=== PATIENT | male | born 1995 | race Caucasian/White ===

== ENCOUNTER 2019-05-18 09:35 | Emergency (ER) | payer OTHER, BC ==
[2019-05-18] MEDS ORDERED: LIDOCAINE 1% INJ-PF (10 MG/ML) 30 ML SDV INJ ONE (09:54)
[2019-05-18] MEDS ORDERED: DIPH/PERTUSS(ACELL)/TETANUS VAC/PF 0.5 ML SYR (>=10YO) IM ONE (09:54)
--- NOTE | 2019-05-18 09:59 | ER Document Report ---
HPI - HPI Time Seen by Provider: 05/18/19 09:49 Pain Level: 2 Notes: Patient is a 23-year-old male with no significant past medical history and unknown last tetanus who presents complaining of left palm laceration and other small areas of excoriations to his hand from oyster shells when he was in the salt water today. Patient states that he slipped and braced his fall with his palm which caused lacerations to the hand. He is able to move his fingers without difficulty. Patient states that the bleeding has been well controlled with gauze and has not noticed any pulsation of blood. Denies drug allergies. No other concerns or complaints. Denies any headache, fever, head injury, neck pain, URI, sore throat, chest pain, palpitations, syncope, cough, shortness of breath, wheeze, dyspnea, abdominal pain, nausea/vomiting/diarrhea, urinary retention, dysuria, hematuria, numbness/tingling, muscle paralysis/weakness, or rash. - ROS Systems Reviewed and Negative: Yes All other systems reviewed and negative Past Medical History - Social History Smoking Status: Current Some Day Smoker Frequency of alcohol use: None Drug Abuse: None Family History: Reviewed & Not Pertinent Patient has suicidal ideation: No Patient has homicidal ideation: No Vertical Provider Document - CONSTITUTIONAL Agree With Documented VS: Yes Notes: PHYSICAL EXAMINATION: GENERAL: Well-appearing, well-nourished and in no acute distress. HEAD: Atraumatic, normocephalic. NECK: Normal range of motion, supple without lymphadenopathy. No midline tenderness. LUNGS: Breath sounds clear to auscultation bilaterally and equal. No wheezes rales or rhonchi. HEART: Regular rate and rhythm without murmurs, rubs, gallops. Musculoskeletal: Lt hand/wrist: + multiple superficial excoriations noted to the hand/fingers. There is an irregular superficial 2cm laceration noted to the left palm. No erythema, warmth, ecchymosis, deformity, or swelling noted. N/V intact distal. FROM to passive/active at the wrist/fingers. Strength 5+/5. No scaphoid tenderness. No other bony tenderness. There were a few pieces of superficial oyster shells that I was able to remove during exam. Extremities: No cyanosis, clubbing, or edema b/l. Peripheral pulses 2+. Capillary refill less than 3 seconds. NEUROLOGICAL: Normal speech, normal gait. Normal sensory, motor exams otherwise unremarkable PSYCH: Normal mood, normal affect. SKIN: see above. No rash Course - Re-evaluation Re-evalutation: 05/18/19 Dr. Dominguez in agreement with dispo/plan: Patient is an afebrile, well-hydrated, 23-year-old male who presents to the ED with a laceration to his left palm. Vitals are acceptable. PE is otherwise unremarkable for any neurovascular compromise, obvious tendon/ligament rupture, obvious fracture/dislocation, septic joint. Patient is nontoxic-appearing and is tolerating p.o. without difficulties. XR unremarkable. Wound was thoroughly irrigated and cleansed. Multiple small foreign body pieces were removed that appeared to be oyster shell fragments. Reviewed the possibility of remaining sm all pieces as a possibility despite very thorough investigation. Wound edges were loosely approximated appropriately utilizing 3 simple interrupted sutures. Wound dressing was placed and wound instructions reviewed. Patient tolerated procedure well without any complications. Tetanus was updated today. No further labs or imaging warranted. Sutures will need removed in 10 days. Recheck with your PCM in 2-3 days. Rx for doxycycline. Sunlight precautions reviewed. Consider consult orthopedics if needed. Return to the ED with any worsening/concerning symptoms otherwise as reviewed in discharge. Patient is in agreement. Procedures - Laceration/Wound Repair Left Hand Wound length (cm): 2 Wound's Depth, Shape: Superficial, Irregular Laceration pre-procedure: Sterile PPE donned, Sterile drapes applied, Other - chlorhexadine/saline Anesthetic type: 1% Lidocaine Volume Anesthetic (mLs): 5 Wound explored: Contaminated, Foreign body removed Irrigated w/ Saline (mLs): 200 Wound Debrided: none Wound Repaired With: Sutures Suture Size/Type: 4:0, Nylon Number of Sutures: 3 Layer Closure?: No Post-procedure wound care: Sterile dressing applied Post-procedure NV exam normal: Yes Complications: No Discharge - Discharge Clinical Impression: Laceration of left palm Qualifiers: Encounter type: initial encounter Qualified Code(s): S61.412A - Laceration without foreign body of left hand, initial encounter Condition: Stable Disposition: HOME, SELF-CARE Instructions: Antibiotic Ointment Protection ([facility]), Laceration Care ([facility]), Prophylactic Antibiotic ([facility]), Soap Cleansing ([facility]), Tetanus Immunization Given ([facility]) Additional Instructions: Do not shower or bathe for 24 hours. After 24 hours you may shower but no submersion of the wound under water. Keep the original dressing on the wound for 24 hours unless the drainage soaks through. Change the dressing daily thereafter and keep the knots of the suture material clean from any dried discharge. You may leave the wound open to the air once there is no more discharge. See your PCM in 2-3 days for a recheck. Monitor for any signs of worsening pain or redness, purulent drainage, streaks, and/or fever. Return to the ED if noticing any of the above symptoms or as needed. Take medications as directed. You will burn easier in the sun on doxycycline, use sunscreen and avoid prolonged exposure. Your sutures will need to be removed in 10-12 days. Prescriptions: Doxycycline Hyclate 100 mg PO BID #20 capsule Referrals: [facility] ([facility]) [Provider Group] - Follow up as needed
--- NOTE | 2019-05-18 10:48 | RADIOLOGY REPORT (SQ) ---
EXAM DESCRIPTION: HAND LEFT 3 VIEWS COMPLETED DATE/TIME: 05/18/2019 10:35 am REASON FOR STUDY: palm laceration/oyster shells COMPARISON: None. EXAM PARAMETERS: NUMBER OF VIEWS: Three views. TECHNIQUE: AP, lateral and oblique radiographic images acquired of the left hand. LIMITATIONS: None. FINDINGS: MINERALIZATION: Normal. BONES: No acute fracture or dislocation. No worrisome bone lesions. JOINTS: No effusions. SOFT TISSUES: Linear radiodensity overlies the volar aspect of the proximal 2nd digit and thenar claudette ence suggestive of foreign body. Bandage material overlies hand. OTHER: No other significant finding. IMPRESSION: No acute bony abnormality. Linear radiodensities overlie the volar aspect of the proximal 2nd digit and thenar eminence compatib le with foreign bodies. TECHNICAL DOCUMENTATION: JOB ID: [id number] [employer]- All Rights Reserved Reading location - IP/workstation name: [email or web address]
[2019-05-18 12:03] VITALS: BP 139/89
== END 2019-05-18 11:58 | disposition home or self-care (01) ==
LOC: ER 09:35
PROC: 0HQGXZZ Repair Left Hand Skin, External Approach (ICD-10-PCS; principal; 2019-05-18)
DX: S61.412A Laceration without foreign body of left hand, initial encounter (principal); W26.8XXA Contact with other sharp object(s), not elsewhere classified, initial encounter; F17.200 Nicotine dependence, unspecified, uncomplicated
CPT/HCPCS: 99283; 90471; 73130; 90715; 12001; J3490